=== PATIENT | male | born 1945 | race Caucasian/White ===

== ENCOUNTER 2019-04-26 00:22 | Observation (INO) | payer MEDICARE, OTHER ==
[~2019-04-26] VITALS: Ht 185.4 cm; Wt 120.5 kg
[~2019-04-26 00:22] MED LIST: ALLO100; ALPR.25 PO; ATEN25 PO; Baclofen10 MG PO; CLOB.05TC TOP; CODACE30 PO; COLCRYS0.6 MG PO; DOXE10 PO; GABA300 PO; HYDCOR2.5B TOP; Omeprazole20 M1; Prinivil10 MG PO; Simvastatin20 MG PO
[2019-04-26 00:52] LABS: BASOPHILS ABSOLUTE AUTO 0.03 K/mm3 (0.00-0.23); BASOPHILS PERCENT AUTO 0 % (0-2); EOSINOPHILS ABSOLUTE AUTO 0.11 K/mm3 (0.00-0.68); EOSINOPHILS PERCENT AUTO 1 % (0-6); Hematocrit 44.7 % (37.0-53.0); IMMATURE GRAN ABSOLUTE AUTO 0.03 K/mm3 (0.00-0.10); IMMATURE GRAN PERCENT AUTO 0 % (0-1); LYMPHOCYTES ABSOLUTE AUTO 2.21 K/mm3 (0.84-5.20); LYMPHOCYTES PERCENT AUTO 29 % (21-46); MONOCYTES ABSOLUTE AUTO 0.86 K/mm3 (0.16-1.47); MONOCYTES PERCENT AUTO 11 % (4-13); Mean Corpuscular HGB 35.8 pg (26.0-34.0); Mean Corpuscular HGB Conc 33.6 g/dL (31.5-36.5); Mean Corpuscular Volume 107 fL (80-100); Mean Platelet Volume 12.1 fL (9.1-12.4); NEUTROPHILS ABSOLUTE AUTO 4.37 K/mm3 (1.96-9.15); NEUTROPHILS PERCENT AUTO 58 % (41-73); Platelet Count 133 K/mm3 (150-400); RDW Coefficient Variation 13.1 % (11.7-14.2); RDW Standard Deviation 51.7 fL (35.1-46.3); Red Blood Cell Count 4.19 M/mm3 (4.30-5.90); White Blood Cell Count 7.61 K/mm3 (4.00-11.30)
[2019-04-26 01:05] LABS: Alanine Aminotransfer (ALT/SGP 51 U/L (12-78); Albumin, Blood 3.4 g/dL (3.4-5.0); Albumin/Globulin Ratio 1.1 (0.8-1.8); Alk Phos 73 U/L (50-136); Anion Gap 8 mmol/L (6-16); Aspartate Aminotrans (AST/SGOT 46 U/L (12-37); Bilirubin, Total 0.4 mg/dL (0.1-1.0); Blood Urea Nitrogen 16 mg/dL (8-24); Bun/Creatinine Ratio 12.5 (12.0-20.0); CO2, Blood 28 mmol/L (21-32); Calcium, Blood 8.4 mg/dL (8.5-10.1); Chloride, Blood 101 mmol/L (98-108); Creatinine, Blood 1.28 mg/dL (0.60-1.20); Globulin, Blood 3.2 g/dL (2.2-4.0); Glomerular Filtration Rate 58 (60-); Glucose, Blood 118 mg/dL (70-99); Potassium, Blood 3.6 mmol/L (3.5-5.5); Sodium, Blood 137 mmol/L (136-145); Total Protein, Blood 6.6 g/dL (6.4-8.2); Troponin I <0.015 ng/mL (0.000-0.040)
[2019-04-26] MEDS ORDERED: DULO60 PO (02:10)
[2019-04-26] MEDS ORDERED: LORA1 PO (02:10)
--- NOTE | 2019-04-26 07:20 | NUR ---
SHIFT SUMMARY PT SLEEPING IN ROOM COMFORTABLY AT THIS TIME. NO ACUTE CHANGES IN STATUS SINCE ARRIVAL. PT SLEEPING WELL, USES CALL LIGHT APPROPRITALY. RESP EVEN UNLBAORE DON RA W/ SATS >92%. PT AOX4, NO NEUROLOGICAL CHANGES. CIWA 3. DENIES OTHER NEEDS. CALL LIGHT IN REACH.
--- NOTE | 2019-04-26 08:22 | NUR ---
AM NOTE ASSUMED CARE OF PT APROX 0700. PT IS A&Ox4 AND IND IN THE ROOM. PT HAS HEMATOMA ON THE BACK OF HIS HEAD FROM A FALL AT HOME. PT STATES HE HAS A MILD HEADACHE AT THIS TIME. PT DENIES ANY LIGHTHEADED/DIZZINESS AT THIS TIME. PT IS CURRENTLY HYPERTENSIVE, PT TO BE MEDICATED PER EMAR. PT DENIES ANY CHEST PAIN/PRESSURE, SOB OR N/V AT THIS TIME. CALL LIGHT IN REACH, BED IS LOCKED AND LOW WILL CONTINUE TO MONITOR.
[2019-04-26] MEDS ORDERED: FOLI1 PO (16:17)
[2019-04-26] MEDS ORDERED: B-1100 MG PO (16:18)
== END 2019-04-26 16:47 | disposition home or self-care (01) ==
LOC: ER 00:22 → PCU 00:23
PROVIDERS: Emergency Medicine; ADMIT Hospitalist
DX: R55 Syncope and collapse (principal); G93.89 Other specified disorders of brain; I10 Essential (primary) hypertension; R51 Headache; F10.229 Alcohol dependence with intoxication, unspecified; Y90.6 Blood alcohol level of 120-199 mg/100 ml; F32.9 Major depressive disorder, single episode, unspecified; S00.03XA Contusion of scalp, initial encounter; W18.30XA Fall on same level, unspecified, initial encounter; G47.30 Sleep apnea, unspecified; Y93.01 Activity, walking, marching and hiking; Y92.008 Other place in unspecified non-institutional (private) residence as the place of occurrence of the external cause; Z79.899 Other long term (current) drug therapy; Z88.5 Allergy status to narcotic agent; Z88.6 Allergy status to analgesic agent; Z88.8 Allergy status to other drugs, medicaments and biological substances
CPT/HCPCS: 70450; 71046; 80053; 84484; 85025; 93005; 93010; 96360; 96361; 96374; 96376; 97116; 97161; 99285-25; G0378; G0480; J0360; J7030

== ENCOUNTER 2020-07-17 11:51 | Day surgery (SDC) | payer MEDICARE, OTHER ==
[~2020-07-17] VITALS: Ht 188 cm; Wt 110.0 kg
[~2020-07-17 11:51] MED LIST changes: +B-1100 MG PO; +COLCRYS0.6 M1; +DULO60 PO; +FOLI1 PO; +LORA1 PO; +TOPI25; +VENL150ER
[2020-07-17] MEDS ORDERED: OMEP20ER PO (12:15)
== END 2020-07-17 13:41 | disposition home or self-care (01) ==
LOC: ORSCSDS 11:51
PROVIDERS: Surgery
PROC: 0DBH8ZX Excision of Cecum, Via Natural or Artificial Opening Endoscopic, Diagnostic (ICD-10-PCS; principal; 2020-07-17 13:00)
DX: Z12.11 Encounter for screening for malignant neoplasm of colon (principal); Z86.010 Personal history of colon polyps; D12.0 Benign neoplasm of cecum; F41.9 Anxiety disorder, unspecified; E78.5 Hyperlipidemia, unspecified; I10 Essential (primary) hypertension; E66.9 Obesity, unspecified; Z68.32 Body mass index [BMI] 32.0-32.9, adult; Z87.891 Personal history of nicotine dependence; Z79.899 Other long term (current) drug therapy
CPT/HCPCS: 88305; J2704; J7120

== ENCOUNTER 2020-09-09 16:08 | Emergency (ER) | payer MEDICARE, OTHER ==
[~2020-09-09] VITALS: Ht 188 cm; Wt 111.1 kg
[~2020-09-09 16:08] MED LIST changes: +OMEP20ER PO; -VENL150ER; +VENL150ER PO
[2020-09-09 17:04] LABS: BASOPHILS ABSOLUTE AUTO 0.04 K/mm3 (0.00-0.23); BASOPHILS PERCENT AUTO 0 % (0-2); EOSINOPHILS ABSOLUTE AUTO 0.07 K/mm3 (0.00-0.68); EOSINOPHILS PERCENT AUTO 1 % (0-6); Hematocrit 49.2 % (37.0-53.0); Hemoglobin 16.5 g/dL (13.5-17.5); IMMATURE GRAN ABSOLUTE AUTO 0.06 K/mm3 (0.00-0.10); IMMATURE GRAN PERCENT AUTO 1 % (0-1); LYMPHOCYTES ABSOLUTE AUTO 1.39 K/mm3 (0.84-5.20); LYMPHOCYTES PERCENT AUTO 14 % (21-46); MONOCYTES ABSOLUTE AUTO 1.01 K/mm3 (0.16-1.47); MONOCYTES PERCENT AUTO 10 % (4-13); Mean Corpuscular HGB 36.9 pg (26.0-34.0); Mean Corpuscular HGB Conc 33.5 g/dL (31.5-36.5); Mean Corpuscular Volume 110 fL (80-100); Mean Platelet Volume 12.6 fL (9.1-12.4); NEUTROPHILS ABSOLUTE AUTO 7.14 K/mm3 (1.96-9.15); NEUTROPHILS PERCENT AUTO 74 % (41-73); Platelet Count 122 K/mm3 (150-400); RDW Coefficient Variation 12.8 % (11.7-14.2); RDW Standard Deviation 52.7 fL (35.1-46.3); Red Blood Cell Count 4.47 M/mm3 (4.30-5.90); White Blood Cell Count 9.71 K/mm3 (4.00-11.30)
[2020-09-09 17:32] LABS: Alanine Aminotransfer (ALT/SGP 79 U/L (12-78); Albumin, Blood 3.6 g/dL (3.4-5.0); Albumin/Globulin Ratio 0.9 (0.8-1.8); Alk Phos 123 U/L (50-136); Anion Gap 6 mmol/L (6-16); Aspartate Aminotrans (AST/SGOT 84 U/L (12-37); Bilirubin, Total 1.2 mg/dL (0.1-1.0); Blood Urea Nitrogen 13 mg/dL (8-24); Bun/Creatinine Ratio 10.9 (12.0-20.0); CO2, Blood 29 mmol/L (21-32); Calcium, Blood 9.1 mg/dL (8.5-10.1); Chloride, Blood 103 mmol/L (98-108); Creatinine, Blood 1.19 mg/dL (0.60-1.20); Globulin, Blood 3.9 g/dL (2.2-4.0); Glomerular Filtration Rate >60 (60-); Glucose, Blood 117 mg/dL (70-99); Potassium, Blood 4.7 mmol/L (3.5-5.5); Sodium, Blood 138 mmol/L (136-145); Total Protein, Blood 7.5 g/dL (6.4-8.2); Troponin I <0.015 ng/mL (0.000-0.040)
== END 2020-09-09 18:15 | disposition home or self-care (01) ==
LOC: ER 16:08
PROVIDERS: Physician Assistant
DX: S06.9X0A Unspecified intracranial injury without loss of consciousness, initial encounter (principal); I10 Essential (primary) hypertension; E11.9 Type 2 diabetes mellitus without complications; Z87.891 Personal history of nicotine dependence; W22.8XXA Striking against or struck by other objects, initial encounter
CPT/HCPCS: 36415; 70450; 80053; 84484; 85025; 93005; 93010; 99284-25

== ENCOUNTER 2021-04-23 10:38 | Day surgery (SDC) | payer MEDICARE, OTHER ==
[~2021-04-23] VITALS: Ht 188 cm; Wt 106.9 kg
[~2021-04-23 10:38] MED LIST changes: +ALLO100 PO; +COLCHICINE0.6 MG PO
== END 2021-04-23 12:50 | disposition home or self-care (01) ==
LOC: ORSCSDS 10:38
PROVIDERS: Student in an Organized Health Care Education/Training Program
PROC: 0DB58ZX Excision of Esophagus, Via Natural or Artificial Opening Endoscopic, Diagnostic (ICD-10-PCS; principal; 2021-04-23 12:45)
PROC: 0DB78ZX Excision of Stomach, Pylorus, Via Natural or Artificial Opening Endoscopic, Diagnostic (ICD-10-PCS; principal; 2021-04-23 12:45)
DX: K21.9 Gastro-esophageal reflux disease without esophagitis (principal); K31.7 Polyp of stomach and duodenum; K29.70 Gastritis, unspecified, without bleeding; I10 Essential (primary) hypertension; G47.33 Obstructive sleep apnea (adult) (pediatric); Z87.891 Personal history of nicotine dependence; Z79.899 Other long term (current) drug therapy
CPT/HCPCS: 88305; 88342; J2704; J7120

== ENCOUNTER → 2022-07-01 | Outpatient (CLI) | payer MEDICARE, OTHER ==
[2022-07-01 17:56] LABS: BASOPHILS ABSOLUTE AUTO 0.04 K/mm3 (0.00-0.23); BASOPHILS PERCENT AUTO 0 % (0-2); EOSINOPHILS ABSOLUTE AUTO 0.04 K/mm3 (0.00-0.68); EOSINOPHILS PERCENT AUTO 0 % (0-6); Hematocrit 41.4 % (37.0-53.0); Hemoglobin 14.5 g/dL (13.5-17.5); IMMATURE GRAN ABSOLUTE AUTO 0.05 K/mm3 (0.00-0.10); IMMATURE GRAN PERCENT AUTO 1 % (0-1); LYMPHOCYTES ABSOLUTE AUTO 1.18 K/mm3 (0.84-5.20); LYMPHOCYTES PERCENT AUTO 13 % (21-46); MONOCYTES ABSOLUTE AUTO 0.86 K/mm3 (0.16-1.47); MONOCYTES PERCENT AUTO 9 % (4-13); Mean Corpuscular HGB 38.3 pg (26.0-34.0); Mean Corpuscular Volume 109 fL (80-100); Mean Platelet Volume 12.5 fL (9.1-12.4); NEUTROPHILS ABSOLUTE AUTO 7.17 K/mm3 (1.96-9.15); NEUTROPHILS PERCENT AUTO 77 % (41-73); Platelet Count 135 K/mm3 (150-400); RDW Coefficient Variation 13.6 % (11.7-14.2); RDW Standard Deviation 55.5 fL (35.1-46.3); Red Blood Cell Count 3.79 M/mm3 (4.30-5.90); White Blood Cell Count 9.34 K/mm3 (4.00-11.30)
[2022-07-01 18:05] LABS: Albumin, Blood 2.9 g/dL (3.4-5.0); Albumin/Globulin Ratio 0.6 (0.8-1.8); Bilirubin, Total 3.3 mg/dL (0.1-1.0); Bun/Creatinine Ratio 8.3 (12.0-20.0); Calcium, Blood 8.9 mg/dL (8.5-10.1); Creatinine, Blood 1.09 mg/dL (0.60-1.20); Globulin, Blood 4.6 g/dL (2.2-4.0); Potassium, Blood 4.7 mmol/L (3.5-5.5); Total Protein, Blood 7.5 g/dL (6.4-8.2)
== END | disposition home or self-care (01) ==
LOC: LAB SHORT 15:10
PROVIDERS: Physician Assistant Surgical
DX: N39.0 Urinary tract infection, site not specified (principal); R18.8 Other ascites
CPT/HCPCS: 80053; 85025; 87086

== ENCOUNTER 2023-01-18 08:32 | Emergency (ER) | payer MEDICARE, OTHER ==
[~2023-01-18] VITALS: Ht 188 cm; Wt 95.2 kg
[~2023-01-18 08:32] MED LIST changes: +FURO20 PO; +SPIR25 PO
== END 2023-01-18 13:47 | disposition home or self-care (01) ==
LOC: ER 08:32
DX: R18.8 Other ascites (principal); I10 Essential (primary) hypertension; Z88.5 Allergy status to narcotic agent; Z79.899 Other long term (current) drug therapy
CPT/HCPCS: 51702; A9270